=== PATIENT | male | born 1970 | race Caucasian/White ===

== ENCOUNTER 2018-08-15 07:11 | Day surgery (SDC) | payer BC ==
[~2018-08-15 07:11] MED LIST: CLINDAMYCIN 900 MG/50 ML D5W IVPB IVPB; METOCLOPRAMIDE 10 MG INJ; ROCURONIUM 50 MG INJ
[2018-08-15] MEDS ORDERED: CLINDAMYCIN 600 MG/D5W (PMX) 50 ML IVPB (08:00)
[2018-08-15] MEDS ORDERED: FENTAnyl 50 MCG/ML VIAL (08:47)
[2018-08-15] MEDS ORDERED: MIDAZOLAM 1 MG/ML 2 ML INJ (08:48)
[2018-08-15] MEDS ORDERED: PROPOFOL 20 ML (08:49)
[2018-08-15] MEDS ORDERED: LIDOCAINE 2% (SDV) 5 ML INJ (08:49)
[2018-08-15] MEDS ORDERED: NEOSTIGMINE 3 MG/3 ML SYRINGE (08:50)
[2018-08-15] MEDS ORDERED: SUCCINYLCHOLINE CHLORIDE 100 MG/5 ML SYG IV (08:50)
[2018-08-15] MEDS ORDERED: ROCURONIUM 50 MG INJ (08:50)
[2018-08-15] MEDS ORDERED: GLYCOPYRROLATE 0.4 MG INJ (08:50)
[2018-08-15] MEDS ORDERED: ONDANSETRON 4 MG INJ (08:51)
[2018-08-15] MEDS ORDERED: PROVENTIL HFA 6.7GM INHALER (10:37)
[2018-08-15] MEDS ORDERED: SUGAMMADEX SODIUM 200 MG/2 ML VIAL IV (10:39)
[2018-08-15] MEDS: LIDOCAINE 1%/EPI 30 ML INJ (12:04)
[2018-08-15] MEDS: BUPIVACAINE 0.5% (SDV) 30 ML INJ (12:04)
[2018-08-15] MEDS ORDERED: ROPIVACAINE 0.5 % 30 ML VIAL (13:12)
[2018-08-15] MEDS ORDERED: LABETALOL HCL 20MG INJ (13:24)
== END 2018-08-15 15:15 | disposition home or self-care (01) ==
LOC: SDS 07:11
DX: K40.90 Unilateral inguinal hernia, without obstruction or gangrene, not specified as recurrent (principal)
CPT/HCPCS: 49650; 74018

== ENCOUNTER 2018-12-14 10:21 | Emergency (ER) | payer BC ==
[2018-12-14] MEDS: IBUPROFEN 600 MG TAB PO (14:48)
[2018-12-14] MEDS: ACETAMINOPHEN 500 MG TAB PO (14:48)
== END 2018-12-14 14:58 | disposition home or self-care (01) ==
LOC: FTE 10:21
DX: J11.1 Influenza due to unidentified influenza virus with other respiratory manifestations (principal)
CPT/HCPCS: 99283; Z7502

== ENCOUNTER 2019-06-21 22:26 | Emergency (ER) | payer BC ==
[2019-06-21] MEDS: IBUPROFEN 600 MG TAB PO (23:07)
== END 2019-06-22 00:08 | disposition home or self-care (01) ==
LOC: FTE 06-22 00:08
DX: M25.512 Pain in left shoulder (principal)
CPT/HCPCS: 73030; 99283-25